=== PATIENT | female | born 1995 | race Caucasian/White ===

== ENCOUNTER 2020-07-21 07:09 | Day surgery (SDC) | payer OTHER ==
[~2020-07-21 07:09] MED LIST: Lidocaine 1%/Sod Bicarbonate in NS 8.4% 1 ML Syringe IDERM PRN; Sodium Chloride 0.9% 10 ML Syringe FLUSH PRN
[2020-07-21] MEDS ORDERED: Bupivacaine 0.5%/EPINEPHrine 1:200,000 50 ML MDV ONE (07:16)
[2020-07-21] MEDS: Lactated Ringers 1,000 ML IV SCH ×2 (07:25→10:00)
--- NOTE | 2020-07-21 07:28 | PCM.PREANE ---
Preanesthetic Assessment - Procedure Proposed Procedure: Laparoscopic Cholecystectomy - Anesthesia/Transfusion/Family Hx Anesthesia History: No Prior Anesthesia - Review of Systems General: No Symptoms Pulmonary: No Symptoms Cardiovascular: No Symptoms Gastrointestinal: No Symptoms Neurological: No Symptoms Other: Reports: Depression, Anxiety - Physical Assessment NPO Status Date: 07/20/20 NPO Status Time: 22:30 Vital Signs: 123/73 71 97% 98.6F Height: 1.75 m Weight: 105 kg ASA Class: 2 Mental Status: Alert & Oriented x3 Airway Class: Mallampati = 2 Dentition: Reports: Normal Dentition Thyro-Mental Finger Breadths: 3 Mouth Opening Finger Breadths: 3 ROM/Head Extension: Full Lungs: Clear to Auscultation, Normal Respiratory Effort Cardiovascular: Regular Rate, Regular Rhythm - Lab Values: Laboratory Last Values Urine HCG, Qual Negative (NEGATIVE) 07/21/20 07:00 - Allergies Allergies/Adverse Reactions: Allergies Allergy/AdvReac Type Severity Reaction Status Date / Time No Known Allergies Allergy Verified 07/20/20 16:24 - Acknowledgements Anesthesia Type Planned: General Anesthesia Pt an Appropriate Candidate for the Planned Anesthesia: Yes Alternatives and Risks of Anesthesia Discussed w Pt/Guardian: Yes Pt/Guardian Understands and Agrees with Anesthesia Plan: Yes PreAnesthesia Questionnaire - Past Health History Medical/Surgical History: Denies Medical/Surgical History Gastrointestinal History: Reports: Fatty Liver Psychiatric History: Reports: Anxiety, Depression Endocrine/Metabolic History: Reports: Obesity/BMI 30+ - Infectious Disease History Infectious Disease History: Reports: None - SUBSTANCE USE Tobacco Use Status *Q: Current Every Day Tobacco User Recreational Drug Use History: Yes Recreational Drug Type: Reports: Marijuana/Hashish - HOME MEDS Home Medications: Home Meds Citalopram Hydrobromide [Celexa] 10 mg PO DAILY 07/20/20 [History] traZODone HCl [Trazodone HCl] 25 mg PO BEDTIME 07/20/20 [History] - CURRENT (IN HOUSE) MEDS Current Meds: Current Medications Lactated Ringer's (Ringers, Lactated) 1,000 mls @ 125 mls/hr IV ASDIRECTED TRICE Stop: 07/21/20 23:00 Lidocaine/Sodium Bicarbonate (Buffered Lidocaine 1% In Ns 8.4%) 0.25 ml IDERM ONETIME PRN PRN Reason: Prior to IV Start Stop: 07/21/20 18:00 Sodium Chloride (Saline Flush) 10 ml FLUSH ASDIRECTED PRN PRN Reason: Keep Vein Open Stop: 07/21/20 18:00 Discontinued Medications Bupivacaine HCl/Epinephrine Bitart (Marcaine 0.5%/Epinephrine 1:200,000) Confirm Administered Dose 50 ml .ROUTE .STK-MED ONE Stop: 07/21/20 07:17
--- NOTE | 2020-07-21 07:32 | PCM.HP.2 ---
H&P History of Present Illness - General Date of Service: 07/21/20 Admit Problem/Dx: cholelithiasis Source of Information: Patient History Limitations: Reports: No Limitations - History of Present Illness Initial Comments - Free Text/Narative: Mrs. Gil was seen in clinic over one month ago for symptomatic cholelithiasis. She presents as scheduled today for laparoscopic cholecystectomy. No changes to health since clinic visit. - Related Data Allergies/Adverse Reactions: Allergies Allergy/AdvReac Type Severity Reaction Status Date / Time No Known Allergies Allergy Verified 07/20/20 16:24 Home Medications: Home Meds Citalopram Hydrobromide [Celexa] 10 mg PO DAILY 07/20/20 [History] traZODone HCl [Trazodone HCl] 25 mg PO BEDTIME 07/20/20 [History] Past Medical History - Past Health History Medical/Surgical History: Denies Medical/Surgical History Psychiatric History: Reports: Anxiety, Depression Endocrine/Metabolic History: Reports: Obesity/BMI 30+ - Infectious Disease History Infectious Disease History: Reports: None Social & Family History - Tobacco Use Tobacco Use Status *Q: Current Every Day Tobacco User Years of Tobacco use: 8 Packs/Tins Daily: 0.3 - Caffeine Use Caffeine Use: Reports: Coffee, Soda - Recreational Drug Use Recreational Drug Use: Yes Drug Use in Last 12 Months: Yes Recreational Drug Type: Reports: Marijuana/Hashish Recreational Drug Use Frequency: Daily H&P Review of Systems - Review of Systems: Review Of Systems: See Below General: Reports: No Symptoms HEENT: Reports: No Symptoms Pulmonary: Reports: No Symptoms Cardiovascular: Reports: No Symptoms Gastrointestinal: Reports: Abdominal Pain, Nausea Genitourinary: Reports: No Symptoms Musculoskeletal: Reports: No Symptoms Skin: Reports: No Symptoms Psychiatric: Reports: No Symptoms Neurological: Reports: No Symptoms Hematologic/Lymphatic: Reports: No Symptoms Immunologic: Reports: No Symptoms Exam - Exam Exam: See Below - Vital Signs Weight: 105 kg - Exam General: Alert, Oriented, Cooperative HEENT: Conjunctiva Clear Neck: Trachea Midline Lungs: Clear to Auscultation, Normal Respiratory Effort Cardiovascular: Regular Rate, Regular Rhythm GI/Abdominal Exam: Soft Extremities: Normal Inspection Skin: Warm, Dry Neuro Extensive - Mental Status: Alert, Oriented x3 Psychiatric: Normal Mood - Patient Data Lab Results Last 24 hrs: Laboratory Results - last 24 hr 07/21/20 Range/Units 07:00 Urine HCG, Qual Negative (NEGATIVE) Problem List Initiated/Reviewed/Updated: Yes Orders Last 24hrs: Active Orders 24 hr Category Date Time Status Peripheral IV Care [RC] . DIRECTED Care 07/21/20 00:01 Active Verify Patient Consent Obtain [RC] ASDIRECTED Care 07/21/20 00:01 Active Lactated Ringers [Ringers, Lactated] 1,000 ml Med 07/21/20 00:01 Active IV ASDIRECTED Lidocaine 1%/Sod Bicarbonate [Buffered Lidocaine 1% in Med 07/21/20 00:01 Active NS 8.4%] 0.25 ml IDERM ONETIME PRN Sodium Chloride 0.9% [Saline Flush] Med 07/21/20 00:01 Active 10 ml FLUSH ASDIRECTED PRN Medication Administration Instruction [OM.PC] Routine Oth 07/21/20 00:01 Ordered Peripheral IV Insertion Adult [OM.PC] Routine Oth 07/21/20 00:01 Ordered Medication Orders Lactated Ringer's (Ringers, Lactated) 1,000 mls @ 125 mls/hr IV ASDIRECTED TRICE Stop: 07/21/20 23:00 Lidocaine/Sodium Bicarbonate (Buffered Lidocaine 1% In Ns 8.4%) 0.25 ml IDERM ONETIME PRN PRN Reason: Prior to IV Start Stop: 07/21/20 18:00 Sodium Chloride (Saline Flush) 10 ml FLUSH ASDIRECTED PRN PRN Reason: Keep Vein Open Stop: 07/21/20 18:00 Assessment/Plan Comment:: Symptomatic cholelithiasis, plan for elective laparoscopic cholecystectomy today. - Mortality Measure Prognosis:: Good
[2020-07-21] MEDS ORDERED: Rocuronium 50 MG/5 ML Vial ONE (07:37)
[2020-07-21] MEDS ORDERED: Propofol 200 MG/20 ML SDV ONE (07:38)
[2020-07-21] MEDS ORDERED: fentaNYL 250 MCG/5 ML SDV ONE (07:38)
[2020-07-21] MEDS ORDERED: Midazolam 1 MG/ML 2 ML SDV ONE (07:38)
[2020-07-21] MEDS ORDERED: Scopolamine 1.5 MG Transdermal Patch TOP ONE (07:40)
[2020-07-21] MEDS ORDERED: Succinylcholine/Sod PF 100 MG/5 ML SYRINGE IV ONE (07:43)
[2020-07-21] MEDS ORDERED: Dexamethasone 4 MG/ML 5 ML MDV ONE (08:09)
[2020-07-21] MEDS ORDERED: Ondansetron 4 MG/2 ML SDV ONE (08:16)
[2020-07-21] MEDS ORDERED: ceFAZolin 1 GM Vial ONE (08:21)
[2020-07-21] MEDS ORDERED: Lactated Ringers 1,000 ML ONE (08:21)
[2020-07-21] MEDS ORDERED: Lidocaine 1% 4 ML ONE (08:21)
[2020-07-21] MEDS ORDERED: HYDROmorphone 0.5 MG/0.5 ML Syringe IVPUSH PRN (08:32)
[2020-07-21] MEDS ORDERED: HYDROmorphone 1 MG/ML Syringe ONE (08:38)
--- NOTE | 2020-07-21 09:10 | PCM.PRNOTE ---
- Free Text/Narrative Note: Date: 07/21/2020 Operation: laparoscopic cholecystectomy Surgeon: Tobi Ramon MD Findings: gallstones. Normal anatomy. Critical view of safety obtained. Detailed Report: The patient was taken to the operating room and placed in supine position. Timeout was performed, and general endotracheal anesthesia was initiated. The abdomen was prepped and draped in usual sterile fashion. A Veress needle was placed the left upper quadrant to establish pneumoperitoneum. Air was aspirated from the umbilicus with a syringe. A 5 mm bladed trocar was inserted just inferior to the umbilicus. 5 mm 30 degree laparoscope was inserted and the abdomen and contents were inspected. Additional 5 mm ports were placed at the right upper quadrant, one for the paperhanger assistant and 1 for the surgeon's left hand. A locking grasper was placed in the fundus of the gallbladder and this was retracted cephalad. The patient was positioned in reverse Trendelenburg and rotated towards the surgeon standing on the patient's left side. An additional 12 mm bladed trocar was inserted at the subxiphoid region. The infundibulum was retracted laterally, and dissection ensued. Peritoneum overlying the gallbladder was divided using monopolar energy at the level of the cystic structures. The cystic duct and artery were skeletonized, and a critical view of safety was obtained. Hemoclips were placed on the cystic duct and cystic artery. The structures were transected. Monopolar energy was used to separate the gallbladder from the liver. The gallbladder was then placed in Endo Catch bag and removed through the subxiphoid site. During extraction, there was some resistance from gallstones, and the gallbladder ruptured within the Endo Catch bag. The incision was enlarged in order to permit extraction. The dissection field appeared clean and dry. A laparoscopic suture passer with 0 Vicryl was used to close the fascia at the larger port site in the subxiphoid region. Right upper quadrant 5 mm ports were removed under laparoscopic vision. Hemostasis was satisfactory. Pneumoperitoneum was released, and the infraumbili pattie port was removed. All incisions were closed at the level of skin with 4-0 Vicryl and dressed with Dermabond. The patient tolerated the procedure well.
[2020-07-21] MEDS ORDERED: Ketorolac 30 MG/ML SDV IVPUSH PRN (09:15)
--- NOTE | 2020-07-21 09:16 | PCM.POSTAN ---
POST ANESTHESIA ASSESSMENT - MENTAL STATUS Mental Status: Somnolent - VITAL SIGNS Vital Signs: Last Vital Signs Temp 97.0 F 07/21/20 09:07 Pulse 81 07/21/20 09:07 Resp 12 07/21/20 09:07 BP 127/87 07/21/20 09:07 Pulse Ox 94 L 07/21/20 09:07 - RESPIRATORY Respiratory Status: Respiratory Rate WNL, Airway Patent, O2 Saturation Stable, Supplemental Oxygen - CARDIOVASCULAR CV Status: Pulse Rate WNL, Blood Pressure Stable - GASTROINTESTINAL GI Status: No Symptoms - PAIN Pain Score: 0 - POST OP HYDRATION Hydration Status: Adequate & Stable
[2020-07-21] MEDS: fentaNYL 100 MCG/2 ML SDV IVPUSH PRN ×2 (09:18→09:54)
[2020-07-21] MEDS ORDERED: Ketorolac 30 MG/ML SDV ONE (09:24)
[2020-07-21] MEDS ORDERED: oxyCODONE 5 MG Tab PO PRN (10:21)
--- NOTE | 2020-07-21 10:30 | PCM48HPAN ---
Post Anesthesia Note - EVALUATION WITHIN 48HRS OF ANESTHETIC Vital Signs in Normal Range: Yes Patient Participated in Evaluation: Yes Respiratory Function Stable: Yes Airway Patent: Yes Cardiovascular Function Stable: Yes Hydration Status Stable: Yes Pain Control Satisfactory: Yes Nausea and Vomiting Control Satisfactory: Yes Mental Status Recovered: Yes Vital Signs: Last Vital Signs Temp 98.0 F 07/21/20 10:10 Pulse 60 07/21/20 10:10 Resp 14 07/21/20 10:10 BP 138/77 07/21/20 10:10 Pulse Ox 100 07/21/20 10:10 - COMMENTS/OBSERVATIONS Free Text/Narrative:: preparing for home discharge
== END 2020-07-21 11:48 | disposition home or self-care (01) ==
LOC: JD.SDS 07:09
PROVIDERS: ATTEND Surgery
DX: K80.10 Calculus of gallbladder with chronic cholecystitis without obstruction (principal); F17.210 Nicotine dependence, cigarettes, uncomplicated; E66.9 Obesity, unspecified; Z68.34 Body mass index [BMI] 34.0-34.9, adult; Z79.899 Other long term (current) drug therapy
CPT/HCPCS: 47562; 81025; A9270; J0330; J0690; J1100; J1170; J1885; J2250; J2405; J2704; J3010; J3490; J7120; 00790